=== PATIENT | male | born 1955 | race Caucasian/White ===

== ENCOUNTER 2020-11-10 21:50 | Emergency (ER) | payer MEDICARE ==
[~2020-11-10 21:50] MED LIST: ALDACTONE50 MG PO; AMIODARONE HCL200 MG PO; ASPIR-LOW81 MG PO; BACTROBAN OINT22 GM EXT; CELEBREX100 MG PO; CLARITIN10 MG PO; COLACE 100MG C100 MG PO; CYMBALTA60 MG PO; DESMOPRESSIN A0.2 MG PO; DITROPAN 5 MG TA5 MG PO; DITROPAN XL 5 MG5 MG PO; FENOFIBRATE160 MG PO; FINASTERIDE5 MG PO; FLOMAX 0.4 MG0.4 MG PO; FLOVENT 220 MC7.9 GM INH; FLOVENT 220.1 GM/INH INH; IMDUR ER TAB 6060 MG PO; IMODIUM CAP 2 MG2 MG PO; ISORDIL TAB 1010 MG PO; ISORDIL TAB 3030 MG PO; ISOSORBIDE MONO60 MG PO; LIPITOR80 MG PO; LOPRESSOR 25 MG25 MG PO; LOPRESSOR100 MG PO; LORTAB 7.5-3251 EACH PO; METOPROLOL TAR100 MG PO; MIRAPEX0.25 MG PO; MYCOSTATIN100000 UTS TOP; MYRBETRIQ25 MG PO; NEURONTIN 300300 MG PO; NITROLINGUAL12 GM SL; NITROSTAT0.4 MG PO; NORVASC 5 MG TAB5 MG PO; NORVASC5 MG PO; OXYCODONE-ACET1 EAC1 PO; PERCOCET 5/325 T1 EA PO; PLAVIX 75 MG TA75 MG PO; POTASSIUM CHLO10 MEQ PO; PROSCAR 5 MG TAB5 MG PO; PROTONIX40 MG PO; RANEXA1000 MG PO; RANEXA500 MG PO; REMERON15 MG PO; SERTRALINE HCL50 MG PO; TEMOVATE60 GM TOP; TESSALON PERLE100 MG PO; TRAZODONE HCL100 MG PO; TYLENOL W/CODEIN1 EA PO; ULTRAM50 MG PO; VALIUM 2 MG TAB2 MG PO; XARELTO10 MG PO; XARELTO15 MG PO; XARELTO20 MG PO; ZANAFLEX4 MG PO; ZETIA 10 MG TAB10 MG PO; ZETIA10 MG PO; ZOFRAN ODT 4 MG4 MG PO; ZOFRAN4 MG PO; ZOLOFT25 MG PO; ZOLPIDEM TARTRA10 MG PO
[2020-11-10] MEDS ORDERED: IBUPROFEN800 MG PO (23:38)
[2020-11-10] MEDS ORDERED: HYDROCODON-ACE1 EAC4 PO (23:38)
== END 2020-11-10 23:47 | disposition home or self-care (01) ==
LOC: ER1 21:50
DX: S62.111A Displaced fracture of triquetrum [cuneiform] bone, right wrist, initial encounter for closed fracture (principal); S82.001A Unspecified fracture of right patella, initial encounter for closed fracture; W01.0XXA Fall on same level from slipping, tripping and stumbling without subsequent striking against object, initial encounter; Y93.01 Activity, walking, marching and hiking
CPT/HCPCS: 29125; 29530; 73090; 73110; 73130; 73560; 73600; 93005; 99284

== ENCOUNTER → 2021-02-14 | Outpatient (CLI) | payer MEDICARE ==
[~2021-02-14] MED LIST changes: +HYDROCODON-ACE1 EAC4 PO; +IBUPROFEN800 MG PO
[2021-02-14 17:56] LABS: HEMOGLOBIN 12.1 gm/dl (14.0-17.5); RED BLOOD COUNT 4.61 M/UL (4.20-5.50); WHITE BLOOD COUNT 7.7 K/UL (4.5-11.0)
== END ==
LOC: LAB 17:16
PROVIDERS: Nurse Practitioner Family
DX: I10 Essential (primary) hypertension (principal); R73.01 Impaired fasting glucose; F41.9 Anxiety disorder, unspecified; R35.1 Nocturia; E55.9 Vitamin D deficiency, unspecified
CPT/HCPCS: 80053; 80061; 82043; 82570; 83036; 84153; 84439; 84443; 85025

== ENCOUNTER → 2021-03-21 | Outpatient (CLI) | payer MEDICARE | LOC: KOH-I 09:13 | DX: R91.8 Other nonspecific abnormal finding of lung field (principal) | CPT/HCPCS: 71250 ==

== ENCOUNTER → 2021-07-04 | Day surgery (SDC) | payer MEDICARE ==
[~2021-07-04] MED LIST changes: +SUMATRIPTAN SU100 MG PO; +TRAZODONE HCL50 MG PO
== END | disposition home or self-care (01) ==
LOC: OR 06:04
PROVIDERS: Internal Medicine Gastroenterology
PROC: 0DBL8ZX Excision of Transverse Colon, Via Natural or Artificial Opening Endoscopic, Diagnostic (ICD-10-PCS; 2021-07-04)
PROC: 0DBN8ZX Excision of Sigmoid Colon, Via Natural or Artificial Opening Endoscopic, Diagnostic (ICD-10-PCS; 2021-07-04)
PROC: 0DBK8ZX Excision of Ascending Colon, Via Natural or Artificial Opening Endoscopic, Diagnostic (ICD-10-PCS; principal; 2021-07-04 08:00)
DX: D12.2 Benign neoplasm of ascending colon (principal); D12.5 Benign neoplasm of sigmoid colon; D12.3 Benign neoplasm of transverse colon; K64.1 Second degree hemorrhoids; K64.4 Residual hemorrhoidal skin tags; K59.09 Other constipation; K21.9 Gastro-esophageal reflux disease without esophagitis; I13.0 Hypertensive heart and chronic kidney disease with heart failure and stage 1 through stage 4 chronic kidney disease, or unspecified chronic kidney disease; E11.22 Type 2 diabetes mellitus with diabetic chronic kidney disease; N18.9 Chronic kidney disease, unspecified; I50.22 Chronic systolic (congestive) heart failure; I25.2 Old myocardial infarction; I69.354 Hemiplegia and hemiparesis following cerebral infarction affecting left non-dominant side; E78.5 Hyperlipidemia, unspecified; J44.9 Chronic obstructive pulmonary disease, unspecified; E78.00 Pure hypercholesterolemia, unspecified; D68.9 Coagulation defect, unspecified; G47.30 Sleep apnea, unspecified; E66.9 Obesity, unspecified; Z68.32 Body mass index [BMI] 32.0-32.9, adult; Z20.822 Contact with and (suspected) exposure to COVID-19; Z88.2 Allergy status to sulfonamides; Z91.011 Allergy to milk products; Z79.84 Long term (current) use of oral hypoglycemic drugs; Z79.01 Long term (current) use of anticoagulants; Z79.02 Long term (current) use of antithrombotics/antiplatelets; Z79.899 Other long term (current) drug therapy; Z90.49 Acquired absence of other specified parts of digestive tract; Z95.810 Presence of automatic (implantable) cardiac defibrillator; Z95.1 Presence of aortocoronary bypass graft
CPT/HCPCS: 82962; J2001; J2704; J7040

== ENCOUNTER 2021-10-24 18:47 | Emergency (ER) | payer MEDICARE ==
[2021-10-24 19:45] LABS: BUN/CREATININE RATIO 16 (0-10)
[2021-10-24 20:14] LABS: HEMOGLOBIN 10.2 gm/dl (14.0-17.5); RED BLOOD COUNT 4.3 M/UL (4.20-5.50); WHITE BLOOD COUNT 8.9 K/UL (4.5-11.0)
== END 2021-10-24 23:24 | disposition home or self-care (01) ==
LOC: ER1 18:47
PROVIDERS: Family Medicine
DX: R07.9 Chest pain, unspecified (principal); I10 Essential (primary) hypertension; Z79.01 Long term (current) use of anticoagulants; I25.10 Atherosclerotic heart disease of native coronary artery without angina pectoris; R10.9 Unspecified abdominal pain; Z95.0 Presence of cardiac pacemaker; Z20.822 Contact with and (suspected) exposure to COVID-19; Z88.2 Allergy status to sulfonamides; Z95.5 Presence of coronary angioplasty implant and graft
CPT/HCPCS: 71045; 80053; 81001; 82550; 82553; 83605; 83874; 83880; 84484; 85025; 85610; 86140; 93005; 96374; 96375; 99285; J2270; J2405; Q9967; U0002

== ENCOUNTER 2021-11-07 18:50 | Emergency (ER) | payer MEDICARE ==
[2021-11-07 20:23] LABS: HEMOGLOBIN 10.4 gm/dl (14.0-17.5); RED BLOOD COUNT 4.56 M/UL (4.20-5.50)
== END 2021-11-07 21:48 | disposition home or self-care (01) ==
LOC: ER1 18:50
PROVIDERS: Physician Assistant
DX: R55 Syncope and collapse (principal); I25.2 Old myocardial infarction; I50.9 Heart failure, unspecified; I48.91 Unspecified atrial fibrillation; I11.0 Hypertensive heart disease with heart failure; Z88.2 Allergy status to sulfonamides
CPT/HCPCS: 70450; 71045; 80053; 82550; 82553; 83874; 84484; 85025; 93005; 99284

== ENCOUNTER 2022-03-23 09:53 | Inpatient (IN) | payer MEDICARE, OTHER ==
[~2022-03-23] VITALS: Ht 180.3 cm; Wt 95.7 kg
[~2022-03-23 09:53] MED LIST changes: +MIRAPEX0.5 MG PO
[2022-03-23 10:27] LABS: HEMOGLOBIN 16.9 gm/dl (14.0-17.5); RED BLOOD COUNT 5.7 M/UL (4.20-5.50); WHITE BLOOD COUNT 8.2 K/UL (4.5-11.0)
[2022-03-23 10:58] LABS: BUN/CREATININE RATIO 11 (0-10)
[2022-03-23] MEDS ORDERED: CYCLOBENZAPRINE10 MG PO (13:23)
[2022-03-23] MEDS ORDERED: TIZANIDINE HCL2 MG PO (13:23)
[2022-03-23] MEDS ORDERED: SERTRALINE HCL50 MG PO (13:23)
[2022-03-23] MEDS ORDERED: METFORMIN HCL500 MG PO (13:24)
[2022-03-23] MEDS ORDERED: TUMS200 MG PO (13:24)
[2022-03-24 04:53] LABS: BUN/CREATININE RATIO 12 (0-10); HEMOGLOBIN 15.8 gm/dl (14.0-17.5); RED BLOOD COUNT 5.32 M/UL (4.20-5.50); WHITE BLOOD COUNT 7.1 K/UL (4.5-11.0)
[2022-03-24] MEDS ORDERED: ASPIRIN EC81 MG PO (09:17)
[2022-03-24] MEDS ORDERED: METOPROLOL SUCC25 MG PO (09:17)
[2022-03-25 03:44] LABS: HEMOGLOBIN 14.8 gm/dl (14.0-17.5); RED BLOOD COUNT 5.07 M/UL (4.20-5.50); WHITE BLOOD COUNT 7.7 K/UL (4.5-11.0)
[2022-03-25 04:15] LABS: BUN/CREATININE RATIO 13 (0-10)
[2022-03-26 02:36] LABS: HEMOGLOBIN 14.8 gm/dl (14.0-17.5); RED BLOOD COUNT 5.08 M/UL (4.20-5.50); WHITE BLOOD COUNT 7.7 K/UL (4.5-11.0)
[2022-03-26 03:04] LABS: BUN/CREATININE RATIO 12 (0-10)
[2022-03-27 07:01] LABS: HEMOGLOBIN 15.2 gm/dl (14.0-17.5); RED BLOOD COUNT 5.24 M/UL (4.20-5.50); WHITE BLOOD COUNT 7.2 K/UL (4.5-11.0)
[2022-03-27 07:21] LABS: BUN/CREATININE RATIO 13 (0-10)
[2022-03-27] MEDS ORDERED: BETAPACE 80MG T80 MG PO (10:42)
== END 2022-03-27 13:40 | disposition home or self-care (01) | DRG 309 ==
LOC: ER1 09:53 → CDU 11:25 → M/S 11:25
PROVIDERS: Emergency Medicine; Internal Medicine; Physician Assistant Medical; ADMIT Internal Medicine
PROC: B24BZZZ Ultrasonography of Heart with Aorta (ICD-10-PCS; principal; 2022-03-23)
DX: I47.1 Supraventricular tachycardia (principal); I50.22 Chronic systolic (congestive) heart failure; I13.0 Hypertensive heart and chronic kidney disease with heart failure and stage 1 through stage 4 chronic kidney disease, or unspecified chronic kidney disease; C91.10 Chronic lymphocytic leukemia of B-cell type not having achieved remission; Z20.822 Contact with and (suspected) exposure to COVID-19; G47.33 Obstructive sleep apnea (adult) (pediatric); I25.5 Ischemic cardiomyopathy; I25.10 Atherosclerotic heart disease of native coronary artery without angina pectoris; N18.30 Chronic kidney disease, stage 3 unspecified; F41.1 Generalized anxiety disorder; K21.9 Gastro-esophageal reflux disease without esophagitis; I48.0 Paroxysmal atrial fibrillation; Z79.01 Long term (current) use of anticoagulants; Z95.1 Presence of aortocoronary bypass graft; Z79.82 Long term (current) use of aspirin; Z86.73 Personal history of transient ischemic attack (TIA), and cerebral infarction without residual deficits; Z88.5 Allergy status to narcotic agent; Z88.2 Allergy status to sulfonamides; Z82.49 Family history of ischemic heart disease and other diseases of the circulatory system; I25.2 Old myocardial infarction; Z90.49 Acquired absence of other specified parts of digestive tract; Z91.011 Allergy to milk products; Z95.5 Presence of coronary angioplasty implant and graft
CPT/HCPCS: ECHO; 36415; 71045; 74019; 80048; 80053; 82550; 82553; 83735; 84132; 84439; 84443; 84484; 85025; 85027; 85610; 85730; 93005; 93306; 96374; 96375; 99285; G0378; J0360; J2270; J2405

== ENCOUNTER 2022-06-18 15:02 | Emergency (ER) | payer MEDICARE, OTHER ==
[~2022-06-18 15:02] MED LIST changes: +ASPIRIN EC81 MG PO; +BETAPACE 80MG T80 MG PO; +CYCLOBENZAPRINE10 MG PO; +METFORMIN HCL500 MG PO; +METOPROLOL SUCC25 MG PO; +SERTRALINE HCL100 MG PO; +TIZANIDINE HCL2 MG PO; +TUMS200 MG PO
[2022-06-18] MEDS ORDERED: HYDROCODON-ACE1 EAC4 PO (17:36)
[2022-06-20] MEDS ORDERED: TRAMADOL HCL50 MG PO (12:10)
[2022-06-20] MEDS ORDERED: VITAMIN C500 M4 PO (12:11)
[2022-06-20] MEDS ORDERED: MIRALAX17 GM PO (12:11)
[2022-06-20] MEDS ORDERED: PRAVASTATIN SOD80 MG PO (12:13)
[2022-06-20] MEDS ORDERED: BREO ELLIPTA 11 EACH INH (12:14)
[2022-06-20] MEDS ORDERED: OMEPRAZOLE20 MG PO (12:17)
[2022-06-20] MEDS ORDERED: ALBUTEROL2.5 MG/3 M INH (12:18)
[2022-06-20] MEDS ORDERED: AMLODIPINE BESY10 MG PO (13:25)
[2022-06-20] MEDS ORDERED: ASPIRIN EC81 MG PO (13:25)
[2022-06-20] MEDS ORDERED: ZETIA10 MG PO (13:28)
[2022-06-20] MEDS ORDERED: ESCITALOPRAM OX10 MG PO (13:28)
[2022-06-20] MEDS ORDERED: FERROUS SULFAT325 MG PO (13:28)
[2022-06-20] MEDS ORDERED: LOSARTAN POTASS50 MG PO (13:29)
[2022-06-20] MEDS ORDERED: METOPROLOL TART25 MG PO (13:31)
[2022-06-21] MEDS ORDERED: RANEXA500 MG PO ×2 (17:42→18:49)
[2022-06-21] MEDS ORDERED: CARVEDILOL25 MG PO ×2 (17:46→18:49)
[2022-06-21] MEDS ORDERED: BETAPACE 80MG T80 MG PO ×2 (17:46→18:49)
[2022-06-21] MEDS ORDERED: PERCOCET 10-321 EACH PO ×2 (17:49→18:49)
[2022-06-21] MEDS ORDERED: XARELTO 15 MG T15 MG PO (17:53)
== END 2022-06-18 18:18 | disposition home or self-care (01) ==
LOC: ER1 15:02
DX: S92.351A Displaced fracture of fifth metatarsal bone, right foot, initial encounter for closed fracture (principal); E11.9 Type 2 diabetes mellitus without complications; Z95.0 Presence of cardiac pacemaker; Z95.5 Presence of coronary angioplasty implant and graft; Z88.2 Allergy status to sulfonamides; W10.9XXA Fall (on) (from) unspecified stairs and steps, initial encounter
CPT/HCPCS: 29515; 73630; 99283

== ENCOUNTER → 2022-06-25 | Outpatient (CLI) | payer MEDICARE, OTHER ==
[~2022-06-25] MED LIST changes: +ALBUTEROL2.5 MG/3 M INH; +AMLODIPINE BESY10 MG PO; +BREO ELLIPTA 11 EACH INH; +CARVEDILOL25 MG PO; +ESCITALOPRAM OX10 MG PO; +FERROUS SULFAT325 MG PO; +LOSARTAN POTASS50 MG PO; +METOPROLOL TART25 MG PO; +MIRALAX17 GM PO; +OMEPRAZOLE20 MG PO; +PERCOCET 10-321 EACH PO; +PRAVASTATIN SOD80 MG PO; +TRAMADOL HCL50 MG PO; +VITAMIN C500 M4 PO; +XARELTO 15 MG T15 MG PO
== END ==
LOC: KOH-I 08:48
DX: S92.301A Fracture of unspecified metatarsal bone(s), right foot, initial encounter for closed fracture (principal)
CPT/HCPCS: 73630